=== PATIENT | female | born 1980 | race American Indian/Alaskan Native ===

== ENCOUNTER 2017-04-20 14:08 | Outpatient (CLI) | payer BC ==
--- NOTE | 2017-04-20 16:38 | Mammography Report ---
Left mammogram and left breast ultrasound: The patient presents with a palpable left breast nodule. Routine views were obtained with a marker placed over the area of concern in the upper-outer breast. There is a somewhat lobulated and inhomogeneous nodule related to the marker measuring approximately 16 mm. The breast pattern is heterogeneous but not otherwise remarkable. Ultrasound demonstrates an elongated echolucency near the areola at 2:00 measuring 7 mm. A rounded lucency noted in 3:00 location measuring 2.4 mm. Slightly dilated retroareolar ducts are noted. In the area of concern however there is an 11.8 mm nodule consistent with benign lymph node. No other findings. Impression: The palpable finding is consistent with a benign lymph node on both mammography and ultrasound. Recommendation: Clinical followup. Age-appropriate mammogram followup. BI-RADS CATEGORY: 2 = Benign ACR BI-RADS MAMMOGRAPHIC CODES: 0 = Needs additional imaging evaluation; 1 = Negative; 2 = Benign; 3 = Probably benign; 4 = Suspicious; 5 = Malignant; 6 = Known biopsy-proven malignancy COMMENT: 1. Dense breast tissue, i.e., adenosis, fibrocystic changes, etc., may obscure an underlying neoplasm. 2. Approximately 10% of cancers are not detected with mammography. 3. A negative mammography report should not delay biopsy if a clinically suspicious mass is present.
== END 2017-04-20 14:09 | disposition home or self-care (01) ==
LOC: SPVWC 14:08
PROVIDERS: ATTEND Obstetrics & Gynecology Gynecology
DX: N63.20 Unspecified lump in the left breast, unspecified quadrant (principal); R92.8 Other abnormal and inconclusive findings on diagnostic imaging of breast